=== PATIENT | female | born 1960 | race Caucasian/White ===

== ENCOUNTER → 2016-09-27 | Outpatient (CLI) | payer BC, OTHER ==
[~2016-09-27] MED LIST: CATHETER FLUSH 10 ML SYR IV PRN; CHOL100045 PO; HORMONE COMPOUND PO; HYDR-3812 PO; IOHEXOL 350 MG/ML 100 ML (OMNIPAQUE 350) VIAL IV ONE; KORE100C PO; LEVO100T7 PO; NS 100 ML (IVPB) BAG IV ONE
--- OUTSIDE RECORDS SUMMARY | 2016-09-27 13:03 | XMS REPORT | Continuity of Care Document ---
Author Author [facility] Organization [facility] Address Unknown Phone Unavailable Care Team Providers Care Finish Sander Name Role Phone NO, LOCAL PHYSICIAN PCP Unavailable Insurance Providers Payer Name Policy Number Subscriber Name Relationship [facility] [id number] Irina Morales Self / Same As Patient Problems No problem information available. Medications No medication information available. Social History Social History Problem Response Recorded Date/Time Recent Foreign Travel SEE [place] [place] 01/03/2016 1:21pm Hospital Discharge Instructions No hospital discharge instructions. Plan of Care Prescriptions See Medication Section Functional Status No functional status results. Allergies, Adverse Reactions, Alerts Unable to obtain allergies. Immunizations No immunization records. Vital Signs No known vital signs results. Results Laboratory Results Test Name Result Units Flags Reference Collection Date/Time Result Date/ Time Comments White Blood Count 5.3 10^3/uL 4.3-11.0 01/03/2016 2:18pm 01/03/2016 2: 24pm Red Blood Count 4.47 10^6/uL 4.35-5.85 01/03/2016 2:18pm 01/03/2016 2: 24pm Hemoglobin 13.5 G/DL 11.5-16.0 01/03/2016 2:18pm 01/03/2016 2:24pm Hematocrit 41 % 35-52 01/03/2016 2:18pm 01/03/2016 2:24pm Mean Corpuscular Volume 91 FL 80-99 01/03/2016 2:18pm 01/03/2016 2: 24pm Mean Corpuscular Hemoglobin 30 PG 25-34 01/03/2016 2:18pm 01/03/2016 2: 24pm Mean Corpuscular Hemoglobin Concent 33 G/DL 32-36 01/03/2016 2:1805/2016 2:24pm Red Cell Distribution Width 12.7 % 10.0-14.5 01/03/2016 2:18pm 2015 2:24pm Platelet Count 204 10^3/uL 130-400 01/03/2016 2:1801/03/2016 2:24pm Mean Platelet Volume 10.6 FL H 7.4-10.4 01/03/2016 2:1801/03/2016 2: 24pm Neutrophils (%) (Auto) 53 % 42-75 01/03/2016 2:01/03/2016 2:24pm Lymphocytes (%) (Auto) 38 % 12-44 01/03/2016 2:1801/03/2016 2:24pm Monocytes (%) (Auto) 7 % 0-12 01/03/2016 2:1801/03/2016 2:24pm Eosinophils (%) (Auto) 3 % 0-10 01/03/2016 2:1801/03/2016 2:24pm Basophils (%) (Auto) 0 % 0-10 01/03/2016 2:1801/03/2016 2:24pm Neutrophils # (Auto) 2.8 X 10^3 1.8-7.8 01/03/2016 2:01/03/2016 2: 24pm Lymphocytes # (Auto) 2.0 X 10^3 1.0-4.0 01/03/2016 2:1801/03/2016 2: 24pm Monocytes # (Auto) 0.4 X 10^3 0.0-1.0 01/03/2016 2:1801/03/2016 2: 24pm Eosinophils # (Auto) 0.2 10^3/uL 0.0-0.3 01/03/2016 2:01/03/2016 2 :24pm Basophils # (Auto) 0.0 10^3/uL 0.0-0.1 01/03/2016 2:1801/03/2016 2: 24pm Sodium Level 140 MMOL/L 135-145 01/03/2016 2:18pm 01/03/2016 3:01pm Potassium Level 3.7 MMOL/L 3.6-5.0 01/03/2016 2:18pm 01/03/2016 3:01pm Chloride Level 105 MMOL/L 98-107 01/03/2016 2:18pm 01/03/2016 3:01pm Carbon Dioxide Level 28 MMOL/L 21-32 01/03/2016 2:18pm 01/03/2016 3: 01pm Anion Gap 7 MMOL/L 5-14 01/03/2016 2:18pm 01/03/2016 3:01pm Blood Urea Nitrogen 11 MG/DL 7-18 01/03/2016 2:18pm 01/03/2016 3:01pm Creatinine 0.71 MG/DL 0.60-1.30 01/03/2016 2:18pm 01/03/2016 3:01pm BUN/Creatinine Ratio 15 01/03/2016 2:18pm 01/03/2016 3:01pm Estimat Glomerular Filtration Rate > 60 01/03/2016 2:182015 3:01pm GFR INTERPRETIVE DATA UNITS FOR ESTIMATED GFR (eGFR): mL/min/1.73 M2 REFERENCE RANGE FOR ESTIMATED GFR (eGFR) eGFR NORMAL eGFR >60 MODERATELY DECREASED eGFR 30-59 SEVERLY DECREASED eGFR 15-29 KIDNEY FAILURE <15 (OR DIALYSIS) Glucose Level 84 MG/DL 70-105 01/03/2016 2:18pm 01/03/2016 3:01pm Calcium Level 9.4 MG/DL 8.5-10.1 01/03/2016 2:1801/03/2016 3:01pm Total Bilirubin 0.5 MG/DL 0.1-1.0 01/03/2016 2:18pm 01/03/2016 3:01pm Alkaline Phosphatase 43 U/L 40-136 01/03/2016 2:18pm 01/03/2016 3:01pm Aspartate Amino Transf (AST/SGOT) 22 U/L 5-34 01/03/2016 2:18pm 2015 3:01pm Alanine Aminotransferase (ALT/SGPT) 30 U/L 0-55 01/03/2016 2:18pm 01/02 3:01pm Total Protein 6.7 G/DL 6.4-8.2 01/03/2016 2:18pm 01/03/2016 3:01pm Albumin 4.1 G/DL 3.2-4.5 01/03/2016 2:18pm 01/03/2016 3:01pm Procedures No known history of procedures. Encounters Encounter Location Arrival/Admit Date Discharge/Depart Date Attending Provider Discharged Recurring [facility] 01/03/16 1:47pm 11:59pm ROCKY VILLAVICENCIO MD
[2016-09-27 13:32] LABS: BLOOD UREA NITROGEN 14 MG/DL (7-18); BUN/CREATININE RATIO 18; CREATININE SERUM 0.76 MG/DL (0.60-1.30); GFR ESTIMATED > 60
--- NOTE | 2016-09-27 14:33 | Diagnostic Imaging Report ---
EXAMINATION: CT chest and neck performed with intravenous contrast with sagittal reconstructions performed. 100 mL of Omnipaque 350 is administered intravenously. INDICATION: Parotid nodule. Resection of skin cancer from the upper chest. FINDINGS: CT CHEST: There are skin changes anteriorly in the upper chest wall with subcutaneous air and edema and fluid probably related to recent skin resection as provided in history. Correlate with pathology results. There is no mediastinal mass. No hilar mass or lymphadenopathy. No axillary significantly enlarged lymph nodes seen. The thoracic aorta is normal in caliber. The heart size is normal. No pericardial or pleural effusion seen. The lungs demonstrate no significant consolidation or mass. No suspicious nodule seen. Sections in the upper abdomen demonstrate a hypervascular mass in the left hepatic lobe superiorly measuring 2.6 CM. The osseous structures appear grossly unremarkable. CT NECK: There is a heterogenous mass in the right thyroid lobe with associated calcification measuring 2.7 x 2.3 x 3.9 CM. A thyroid neoplasm is not excluded. The parotid space demonstrate normal gland seen bilaterally with no mass. The submandibular glands appear symmetric. The mucosal pharyngeal space is fairly symmetric. There is no significantly enlarged lymph nodes noted in the cervical chain bilaterally. Vascular enhancement in the internal jugular veins and the carotid arteries appear unremarkable. The osseous structures appear grossly unremarkable. IMPRESSION: CT NECK: A 3.9 cm solid right thyroid mass with calcification. Ultrasound evaluation and biopsy is recommended to rule out thyroid neoplasm. CT CHEST: 1. Post resection changes are seen in the skin along the anterior upper chest wall. No lung mass or lymphadenopathy in the chest. 2. Left hepatic lobe hypervascular 2.6 cm mass could be a hemangioma rather than metastasis. This can be better characterized with liver mass protocol dedicated MRI or CT scan of the abdomen. Report was faxed to office of Dr. Bryant by mee at 2:35p.m. Dictated by: Dictated on workstation # [id number]
== END ==
LOC: RAD 12:59
PROVIDERS: ATTEND Family Medicine
DX: K11.8 Other diseases of salivary glands (principal); L98.9 Disorder of the skin and subcutaneous tissue, unspecified
CPT/HCPCS: 36415; 70491; 71260; 82565; 84520

== ENCOUNTER → 2016-10-09 | Outpatient (CLI) | payer BC ==
--- OUTSIDE RECORDS SUMMARY | 2016-10-09 11:59 | XMS REPORT | Continuity of Care Document ---
Author Author [facility] Organization [facility] Address Unknown Phone Unavailable Care Team Providers Care Monument Letterer Name Role Phone NO, LOCAL PHYSICIAN PCP Unavailable Insurance Providers Payer Name Policy Number Subscriber Name [facility] [id number] Irina Morales Self / Same As Patient [...] Discharge/Depart Date Attending Provider Discharged Recurring [facility] 01/03/16 1:47pm 11:59pm ROCKY VILLAVICENCIO MD
--- NOTE | 2016-10-09 12:57 | Diagnostic Imaging Report ---
PROCEDURE: CT abdomen with and without contrast. TECHNIQUE: Multiple contiguous axial CT images of the abdomen were obtained prior to and after intravenous administration of iodinated contrast. INDICATION: Liver mass seen on CT chest from 09/27/2016. FINDINGS: In the left hepatic lobe segment II, there is a 2.5 x 2.5 x 2.5 cm hypervascular mass seen in the superior anterior aspect, which remains hypervascular on the portal venous phase and is associated with minimal washout on the delayed phase with a central area of enhancement. The unenhanced phase demonstrates minimally hypodense lesion at this location. There is another 9 mm hypervascular lesion in the lateral aspect of the left hepatic lobe, isodense to the liver parenchyma on the other phases. There is a third lesion also seen in the right hepatic lobe, axial image 40, also measuring 9 mm and isodense on the other phases. Another hypodense lesion measuring 1 cm in the medial aspect of the right hepatic lobe, image 40, is too small to accurately characterize. The gallbladder, the spleen, the adrenal glands, and the pancreas appear unremarkable. The kidneys have symmetric enhancement and contrast excretion. A 9 mm simple cyst in the left kidney is seen. No hydronephrosis. The abdominal aorta is normal in caliber. No para-aortic significantly enlarged lymph nodes. No free fluid or fluid collection is seen. Degenerative changes in the lower lumbar spine are seen. IMPRESSION: There are multiple hepatic lesions with the dominant lesion in the superior anterior aspect of the left hepatic lobe measuring 2.5 cm. 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 Liver MRI with Eovist contrast can be more specific for FNH diagnosis. Followup MRI or CT scan of the liver in three months is recommended. Dictated by: Dictated on workstation # [id number]
== END ==
LOC: RAD 11:55
PROVIDERS: ATTEND Family Medicine
DX: E07.89 Other specified disorders of thyroid (principal); R16.0 Hepatomegaly, not elsewhere classified
CPT/HCPCS: 74170

== ENCOUNTER → 2016-10-11 | Outpatient (CLI) | payer BC ==
[~2016-10-11] MED LIST changes: -CATHETER FLUSH 10 ML SYR IV PRN; -IOHEXOL 350 MG/ML 100 ML (OMNIPAQUE 350) VIAL IV ONE; -NS 100 ML (IVPB) BAG IV ONE
--- OUTSIDE RECORDS SUMMARY | 2016-10-11 12:10 | XMS REPORT | Continuity of Care Document ---
Author Author [facility] Organization [facility] Address Unknown Phone Unavailable Care Team Providers Care Soaking Room Operator Name Role Phone NO, LOCAL PHYSICIAN PCP Unavailable Insurance Providers Payer Name Policy Number Subscriber Name Relationship [facility] [id number] Irina Morales Self / Same As Patient [...] Discharge/Depart Date Attending Provider Discharged Recurring [facility] 01/03/16 1:47pm 11:59pm ROCKY VILLAVICENCIO MD
== END ==
LOC: LAB 12:07
PROVIDERS: ATTEND Family Medicine
DX: E04.1 Nontoxic single thyroid nodule (principal)
CPT/HCPCS: 36415; 84436; 84443; 84480

== ENCOUNTER → 2016-10-24 | Outpatient (CLI) | payer BC, OTHER ==
[~2016-10-24] VITALS: Ht 165.1 cm; Wt 63.5 kg
[~2016-10-24] MED LIST changes: +GADOXETATE 2.5 MMOL/10 ML (EOVIST) IV ONE; +LIDOCAINE 1% INJ 20 ML (XYLOCAINE) VIAL INJ ONE; +LIDOCAINE 1% INJ 20 ML (XYLOCAINE) VIAL ONE
--- OUTSIDE RECORDS SUMMARY | 2016-10-24 12:11 | XMS REPORT | Continuity of Care Document ---
Author Author [facility] Organization [facility] Address Unknown Phone Unavailable Care Team Providers Care Emergency Room Doctor Name Role Phone NO, LOCAL PHYSICIAN PCP Unavailable Insurance Providers Payer Name Policy Number Subscriber Name Relationship [facility] [id number] Irina Morales Self / Same As Patient [...] Discharge/Depart Date Attending Provider Discharged Recurring [facility] 01/03/16 1:47pm 11:59pm ROCKY VILLAVICENCIO MD
[2016-10-24 12:48] LABS: BLOOD UREA NITROGEN 14 MG/DL (7-18); BUN/CREATININE RATIO 19; CREATININE SERUM 0.74 MG/DL (0.60-1.30); GFR ESTIMATED > 60
[2016-10-24 13:32] VITALS: BP 134/84
[2016-10-24 13:58] VITALS: BP 128/80
--- NOTE | 2016-10-24 16:27 | Diagnostic Imaging Report ---
EXAMINATION: US-guided core biopsy-thyroid. INDICATION: Right thyroid nodule. Current history and physical and other medical records are reviewed prior to the procedure. CONSENT: Informed consent was obtained from the patient. The risks, benefits, potential complications and alternatives were reviewed and all questions answered to the patient's satisfaction. The patient's vital signs, cardiac rhythm, and pulse oximetry with observed throughout the procedure by qualified nursing personnel. Sedation/medications: none. FINDINGS: Right thyroid mass. PROCEDURE: After maximal sterile barrier technique preparation and draping, 1% lidocaine was utilized for local anesthesia. With the patient in supine position, and via anterior approach, a 19-gauge guide needle is introduced into the right-sided mass under live ultrasound guidance. After confirming adequate positioning with saved ultrasound images, multiple 20 gauge core biopsy specimens were obtained. The patient tolerated the procedure well with no immediate complications. IMPRESSION: Successful US-guided core biopsy of right thyroid mass. Dictated by: Dictated on workstation # [id number]
--- NOTE | 2016-10-24 18:26 | Diagnostic Imaging Report ---
PROCEDURE: MR imaging abdomen with and without contrast. TECHNIQUE: Multiplanar, multisequence MR imaging of the abdomen was performed with and without contrast. INDICATION: Liver masses. 6 mL of Eovist is administered intravenously. FINDINGS: There is an isointense T1 and very minimally hyperintense T2 mass measuring 2.8 x 2.3 cm superiorly in the left hepatic lobe with associated postcontrast enhancement. There is no significant washout on delayed phase imaging. The mass is lobulated and has defined margins. There is central scar suggested. There is delayed phase enhancement in the 20 minute hepatocellular phase contrast with Eovist which is associated with high specificity for focal nodular hyperplasia diagnosis. Other lesions close to 1 cm are occult by MRI except for an anterior right hepatic lobe segment 5 lesion without enhancement and with T2 hyperintense signal suggestive of a hepatic cyst. The gallbladder is contracted with no stones or evidence of cholecystitis. The spleen is normal in size. The adrenal glands and the pancreas appear unremarkable. The kidneys have symmetric enhancement with no solid mass. The abdominal aorta is normal in caliber. No para-aortic significantly enlarged lymph nodes seen. 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 Followup MRI or CT exams to ensure stability is recommended initially at 4 month interval. Dictated by: Dictated on workstation # [id number]
--- NOTE | 2016-10-24 19:35 | Diagnostic Imaging Report ---
PROCEDURE: US Thyroid. TECHNIQUE: Multiple real-time grayscale images were obtained of the thyroid in various projections. INDICATION: Thyroid mass seen on CT. FINDINGS: The right thyroid lobe is 5.3 x 2.5 x 2.3 cm. The left lobe is 2.9 x 0.8 x 1.8 cm. There is a 3.9 x 2.3 x 2.3 cm mass seen in the right thyroid lobe. In the upper aspect of the left thyroid lobe, there is a 2 mm hypoechoic lesion probably a tiny colloid cyst. No other lesions identified. IMPRESSION: 3.9 cm solid mass in the right thyroid lobe. Dictated by: Dictated on workstation # [id number]
== END ==
LOC: RAD 12:08
PROVIDERS: ATTEND Surgery
DX: E04.1 Nontoxic single thyroid nodule (principal); R16.0 Hepatomegaly, not elsewhere classified
CPT/HCPCS: 36415; 74183; 76536; 76942; 82565; 84520; 88305

== ENCOUNTER 2016-10-31 11:01 | Outpatient (CLI) | payer BC ==
[~2016-10-31] VITALS: Ht 165.1 cm; Wt 60.6 kg
--- OUTSIDE RECORDS SUMMARY | 2016-10-31 11:05 | XMS REPORT | Continuity of Care Document ---
Author Author [facility] Organization [facility] Address Unknown Phone Unavailable Care Team Providers Care Civil Engineering Design Draftsperson Name Role Phone NO, LOCAL PHYSICIAN PCP Unavailable Insurance Providers Payer Name Policy Number Subscriber Name Relationship [facility] [id number] Irina Morales Self / Same As Patient [...] Discharge/Depart Date Attending Provider Discharged Recurring [facility] 01/03/16 1:47pm 11:59pm ROCKY VILLAVICENCIO MD
[2016-10-31] MEDS ORDERED: KORE100C PO (11:11)
[2016-10-31] MEDS ORDERED: CHOL100045 PO (11:11)
[2016-10-31] MEDS ORDERED: HORMONE COMPOUND PO (11:11)
[2016-10-31 11:14] VITALS: BP 123/76
[2016-10-31 11:41] LABS: BASOPHILS % (AUTO) 0 % (0-10); EOSINOPHILS # (AUTO) 0.1 10^3/uL (0.0-0.3); EOSINOPHILS % (AUTO) 3 % (0-10); LYMPHOCYTES # (AUTO) 2.3 X 10^3 (1.0-4.0); LYMPHOCYTES % (AUTO) 43 % (12-44); MEAN CORPUSCULAR HEMOGLOBIN 31 PG (25-34); MEAN CORPUSCULAR HGB CONC 34 G/DL (32-36); MEAN CORPUSCULAR VOLUME 89 FL (80-99); MEAN PLATELET VOLUME 10.8 FL (7.4-10.4); MONOCYTES # (AUTO) 0.5 X 10^3 (0.0-1.0); MONOCYTES % (AUTO) 9 % (0-12); NEUTROPHILS # (AUTO) 2.5 X 10^3 (1.8-7.8); NEUTROPHILS % (AUTO) 46 % (42-75); PLATELET COUNT 193 10^3/uL (130-400); RED BLOOD COUNT 4.46 10^6/uL (4.35-5.85); RED CELL DISTRIBUTION WIDTH 12.3 % (10.0-14.5); WHITE BLOOD COUNT 5.5 10^3/uL (4.3-11.0)
[2016-10-31 12:07] LABS: ANION GAP 10 MMOL/L (5-14); BLOOD UREA NITROGEN 15 MG/DL (7-18); BUN/CREATININE RATIO 22; CALCIUM 9.4 MG/DL (8.5-10.1); CARBON DIOXIDE 24 MMOL/L (21-32); CHLORIDE 108 MMOL/L (98-107); CREATININE SERUM 0.69 MG/DL (0.60-1.30); GFR ESTIMATED > 60; GLUCOSE 76 MG/DL (70-105); POTASSIUM 3.8 MMOL/L (3.6-5.0); SODIUM 142 MMOL/L (135-145)
== END 2016-10-31 11:30 | disposition home or self-care (01) ==
LOC: PREOP 11:01
PROVIDERS: ATTEND Surgery
DX: Z01.812 Encounter for preprocedural laboratory examination (principal); Z11.2 Encounter for screening for other bacterial diseases; E04.2 Nontoxic multinodular goiter; C44.519 Basal cell carcinoma of skin of other part of trunk
CPT/HCPCS: 36415; 80048; 85025; 87081

== ENCOUNTER 2016-11-02 08:54 | Day surgery (SDC) | payer BC, OTHER ==
[~2016-11-02] VITALS: Ht 165.1 cm; Wt 60.6 kg
[~2016-11-02 08:54] MED LIST changes: -GADOXETATE 2.5 MMOL/10 ML (EOVIST) IV ONE; -HYDR-3812 PO; -LEVO100T7 PO; -LIDOCAINE 1% INJ 20 ML (XYLOCAINE) VIAL INJ ONE; -LIDOCAINE 1% INJ 20 ML (XYLOCAINE) VIAL ONE
--- OUTSIDE RECORDS SUMMARY | 2016-11-02 08:57 | XMS REPORT | Continuity of Care Document ---
Author Author [facility] Organization [facility] Address Unknown Phone Unavailable Care Team Providers Care Oceanography Teacher Name Role Phone GAIL FELDMAN MD PCP Insurance Providers Payer Name Policy Number Subscriber Name Relationship [facility] [id number] Irina Santana 18 Self / Same As Patient Advance Directives Directive Response Recorded Date/Time Advance Directives No 10/31/16 11:12am Health Care Power of Host Hostess No 10/31/16 11:12am Organ Donor Yes 10/31/16 11:12am Resuscitation Status Full Code 10/31/16 11:12am Problems No problem information available. Medications Current Home Medications Medication Dose Units Route Directions Days/Qty Instructions Start Date Cholecalciferol (Vitamin D3) 1,000 Unit 2,000 Unit Oral Daily Polish Ginseng Root Extract 100 Mg 200 Mg Oral Daily 10/31/16 [Hormone Compound] 1 Tab Oral Daily 10/31/16 Social History Social History Problem Response Recorded Date/Time Alcohol Use Rarely Uses 10/31/2016 11:12am Recreational Drug Use No 10/31/2016 11:12am Recent Foreign Travel No 10/31/2016 11:11am Recent Infectious Disease Exposure No 10/31/2016 11:11am Smoking Status Light Tobacco Smoker 10/31/2016 11:12am Recent Hopitalizations No 10/31/2016 11:12am Query Response Start Date Stop Date Smoking Status Light Tobacco Smoker Hospital Discharge Instructions No hospital discharge instructions. Plan of Care Discharge Date 10/31/16 11:30am Prescriptions See Medication Section Functional Status No functional status results. Allergies, Adverse Reactions, Alerts No known allergies. Immunizations No immunization records. Vital Signs Acute Vital Signs Vital Response Date/Time Temperature (Fahrenheit) 98.8 degrees F (97.6 - 99.5) 10/24/2016 1:58pm Temperature (Calculated Celsius) 36.51699 degrees C (36.4 - 37.5) 10/24/2016 1:32pm Temperature Source Temporal 10/24/2016 1:58pm Pulse Rate (adult) 82 bpm (60 - 90) 10/31/2016 11:14am Respiratory Rate 18 bpm (12 - 24) 10/24/2016 1:58pm O2 Sat by Pulse Oximetry 97 % (88 - 100) 10/31/2016 11:14am Blood Pressure 123/76 mm Hg 10/31/2016 11:14am Blood Pressure Mean 92 mm Hg 10/31/2016 11:14am Pain Numeric Pain Scale 0-No Pain 10/31/2016 11:14am Height (Feet) 5 feet 10/31/2016 11:09am Height (Inches) 5.00 inches 10/31/2016 11:09am Height (Calculated Centimeters) 165.412232 cm 10/31/2016 11:09am Weight (Pounds) 133 pounds 10/31/2016 11:09am Weight (Ounces) 8.0 oz 10/31/2016 11:09am Weight (Calculated Grams) 37478.58 gm 10/31/2016 11:09am Weight (Calculated Kilograms) 60.320610 kilograms 10/31/2016 11:09am Calculated BMI 22.2 10/31/2016 11:09am Results Pending Laboratory Results Test Name Collection Date/Time Procedures Procedure Status Date Provider(s) BIOPSY OF THYROID Completed 10/24/16 PAVEL DAY MD Encounters Encounter Location Arrival/Admit Date Discharge/Depart Date Attending Provider Departed Clinic [facility] 10/31/16 11:01am 10/31/16 11: 30am JOSE MANUEL HARTMANN MD Registered Clinic [facility] 10/24/16 12:08pm JOSE MANUEL HARTMANN MD Registered Clinic [facility] 10/11/16 12:07pm GAIL FELDMAN MD Registered Clinic [facility] 10/09/16 11:55am GAIL FELDMAN MD
--- OUTSIDE RECORDS SUMMARY | 2016-11-02 08:58 | XMS REPORT | Continuity of Care Document ---
Author Author [facility] Organization [facility] Address Unknown Phone Unavailable Care Team Providers Care Register Of Wills Name Role Phone GAIL FELDMAN MD PCP Insurance Providers Payer Name Policy Number Subscriber Name Relationship [facility] [id number] Irina Santana 18 Self / Same As Patient Advance Directives Directive Response Recorded Date/Time Advance Directives No 10/31/16 11:12am Health Care Power of Aircraft Armament Mechanic No 10/31/16 11:12am Organ Donor Yes 10/31/16 11:12am Resuscitation Status Full Code 10/31/16 11:12am Problems No problem information available. Medications Current Home Medications Medication Dose Units Route Directions Days/Qty Instructions Start Date Cholecalciferol (Vitamin D3) 1,000 Unit 2,000 Unit Oral Daily Bulgarian Ginseng Root Extract 100 Mg 200 Mg [...] - 99.5) 10/24/2016 1:58pm Temperature (Calculated Celsius) 36.11944 degrees C (36.4 - 37.5) 10/24/2016 1:32pm [...] 5.00 inches 10/31/2016 11:09am Height (Calculated Centimeters) 165.212141 cm 10/31/2016 11:09am Weight (Pounds) 133 pounds 10/31/2016 11:09am Weight (Ounces) 8.0 oz 10/31/2016 11:09am Weight (Calculated Grams) 43663.58 gm 10/31/2016 11:09am Weight (Calculated Kilograms) 60.765282 kilograms 10/31/2016 11:09am Calculated BMI 22.2 10/31/2016 11:09am Results Pending Laboratory Results Test Name Collection Date/Time Procedures Procedure Status Date Provider(s) BIOPSY OF THYROID Completed 10/24/16 PAVEL DAY MD Encounters Encounter Location Arrival/Admit Date Discharge/Depart Date Attending Provider Departed Clinic [facility] 10/31/16 11:01am 10/31/16 11: 30am JOSE MANUEL HARTMANN MD Registered Clinic [facility] 10/24/16 12:08pm JOSE MANUEL HARTMANN MD Registered Clinic [facility] 10/11/16 12:07pm GAIL FELDMAN MD Registered Clinic [facility] 10/09/16 11:55am GAIL FELDMAN MD
[2016-11-02] MEDS ORDERED: ceFAZolin 1,000 MG (ANCEF) VIAL ONE (09:32)
[2016-11-02] MEDS ORDERED: NS (IVPB) 50 ML ONE (09:32)
[2016-11-02 09:55] VITALS: BP 115/77
[2016-11-02] MEDS: LACTATED RINGERS 1,000 ML IV PRN ×2 (09:57→12:35)
--- NOTE | 2016-11-02 11:05 | Progress Note-Pre Operative ---
Pre-Operative Progress Note H&P Reviewed The H&P was reviewed, patient examined and no changes noted. Date H&P Reviewed: Nov 02, 2016 Time H&P Reviewed: 11:05 Pre-Operative Diagnosis: 1.Thyroid nodules. 2. BCC Left chest wall JOSE MANUEL HARTMANN MD Nov 02, 2016 11:05 am
[2016-11-02] MEDS ORDERED: THROMBIN SPRAY KIT 5,000 UNIT VIAL ONE (11:12)
[2016-11-02] MEDS ORDERED: BUP/EPI 0.25% 1:200,000 (MARCAINE) 30 ML VIAL ONE (11:12)
[2016-11-02] MEDS ORDERED: ROCURONIUM 50 MG/5 ML (ZEMURON) VIAL IV ONE (11:29)
[2016-11-02] MEDS ORDERED: DEXAMETHASONE PF 10 MG/ML (DECADRON) VIAL ONE (11:29)
[2016-11-02] MEDS ORDERED: LIDOCAINE PF 2% 10 ML (XYLOCAINE) AMP ONE (11:29)
[2016-11-02] MEDS ORDERED: ONDANSETRON 4 MG/2 ML (SDV) Z0FRAN ONE ×2 (11:29→15:40)
[2016-11-02] MEDS ORDERED: proPOfol 200 MG/20 ML (DIPRIVAN) VIAL IV ONE (11:29)
[2016-11-02] MEDS ORDERED: SEVOFLURANE (ULTANE) 15 ML INHAL SOLN ONE ×3 (11:29→14:18)
[2016-11-02] MEDS ORDERED: LACTATED RINGERS 1,000 ML IV ONE ×2 (11:29→12:38)
[2016-11-02] MEDS ORDERED: MIDAZOLAM 2 MG/2 ML (VERSED) VIAL ONE (11:30)
[2016-11-02] MEDS ORDERED: fentaNYL INJECTION 250 MCG/5 ML AMP ONE (11:30)
[2016-11-02] MEDS ORDERED: SUCCINYLCHOLINE INJ 100 MG/5 ML SYR ONE (11:30)
[2016-11-02] MEDS ORDERED: CATHETER FLUSH 10 ML SYR IV PRN (12:00)
[2016-11-02] MEDS ORDERED: ceFAZolin 1 GM/NS 50 ML IVPB IV ONE ×2 (12:00)
[2016-11-02] MEDS ORDERED: ONDANSETRON 4 MG/2 ML (SDV) Z0FRAN IVP PRN (14:00)
[2016-11-02] MEDS ORDERED: fentaNYL INJECTION 100 MCG/2 ML AMP IVP PRN (14:00)
--- NOTE | 2016-11-02 14:00 | Progress Note-Post Operative ---
Post-Operative Progess Note Pre-Operative Diagnosis 1.Thyroid nodules. 2. BCC Left chest wall Post-Operative Diagnosis Same Post-Op Procedure Note Date of Procedure: Nov 02, 2016 Name of Procedure: 1.ttotal thyroidectomy 2. Intraoperative no monitoring 3. Excision of basal cell carcinoma from left chest wall Anesthesia Type Gen. Estimated blood loss (mL): minimal Specimen(s) collected both lobes of thyroid. Basal cell carcinoma from left chest wall JOSE MANUEL HARTMANN MD Nov 02, 2016 2:00 pm
[2016-11-02] MEDS ORDERED: HYDR-3812 PO (14:02)
[2016-11-02] MEDS ORDERED: LEVO100T7 PO (14:03)
--- NOTE | 2016-11-02 14:04 | Discharge Inst-Simple/Standard ---
Discharge Inst-Standard Discharge Medications New, Converted or Re-Newed RX: RX on Chart Patient Instructions/Follow Up Plan of Care/Instructions/FU: dressings off in a.m. Follow-up in 3 weeks Activity as Tolerated: Yes Discharge Diet: No Restrictions JOSE MANUEL HARTMANN MD Nov 02, 2016 2:04 pm
[2016-11-02] MEDS ORDERED: morphine INJ 10 MG/ML 1ML (SYR OR VIAL) ONE (14:27)
[2016-11-02] MEDS ORDERED: ONDANSETRON 4 MG/2 ML (SDV) Z0FRAN IV PRN (15:15)
[2016-11-02] MEDS: morphine INJ 10 MG/ML 1ML (SYR OR VIAL) IV PRN ×2 (15:15→15:20)
[2016-11-02 16:00] VITALS: BP_SYST 115; BP_SYST 128; BP_DIAS 70; BP_DIAS 77
[2016-11-02 17:00] VITALS: BP 115/77
[2016-11-02] MEDS: LACTATED RINGERS 1,000 ML IV SCH (17:19)
[2016-11-02 20:00] VITALS: BP 124/77
--- NOTE | 2016-11-02 20:24 | OPERATIVE REPORT ---
PROCEDURE PHYSICIAN: JOSE MANUEL HARTMANN DATE OF PROCEDURE: 11/02/2016 PREOPERATIVE DIAGNOSES: 1. Bilateral thyroid nodules. 2. Basal cell carcinoma of the left chest wall. POSTOPERATIVE DIAGNOSIS: 1. Bilateral thyroid nodules. 2. Basal cell carcinoma of the left chest wall. OPERATIONS: 1. Total thyroidectomy. 2. Intraoperative nerve monitoring. 3. Excision of basal cell carcinoma of left chest wall. SURGEON: Dr. Hartmann ANESTHESIA: General anesthesia. BLOOD LOSS: Minimal. FLUIDS: 1500 mL of crystalloids. TYPE OF WOUND: Type I (clean wound). INDICATION FOR THE PROCEDURE: This lady was found to have a 3.9 cm right thyroid nodule and a smaller left thyroid nodule. Despite negative needle biopsy, due to the large nature of the nodule, it is felt reasonable to proceed with thyroidectomy, to establish a definitive diagnosis. During the evaluation, an area of basal cell carcinoma involving the left chest wall with positive margins was discovered. Therefore, reexcision with negative margins was also offered. Informed consent was obtained after reviewing the operative details and complications of postoperative hematoma, transient hoarseness of voice and hypocalcemia. DESCRIPTION OF PROCEDURE: She was placed supine on the operating table and general anesthesia induced using an endotracheal tube. A gram of Ancef was administered intravenously as prophylaxis against infection. Sequential compression devices were placed around her legs, to minimize the risk of venous thrombosis. TOTAL THYROIDECTOMY/NEUROMONITORING: Her neck and upper chest were prepared and draped in the usual sterile manner. Preemptive analgesia was established using 0.25% Marcaine with epinephrine. A 4 cm transverse incision was made along the skin crease of the neck and platysma incised transversely. Flaps were raised superiorly to the level of the thyroid cartilage and inferiorly to the sternal notch. Cervical fascia was incised vertically and the strap muscles were retracted laterally. I began the dissection on the right side. The lobe with a large nodule within it came into view and was retracted medially. The recurrent laryngeal nerve was identified in its conventional position and protected by constant visual inspection and intermittent nerve stimulation technique. Both about thyroid gland identified and preserved, along with their blood supply. The isthmus was then divided and the right lobe sent for frozen section examination. There was no evidence of papillary carcinoma. On the left side a smaller lobe with a subcentimeter nodule is encountered. It excised in a standard fashion. I was able to identify it superior parathyroid gland and preserved its blood supply. We had the anesthesiologist conduct Valsalva maneuver, looking for bleeding. There was not any. Gelfoam, soaked in thrombin solution was placed along the tracheoesophageal groove to optimize hemostasis. The neck was flexed in preparation for closure. Cervical fascia was approximated using 3-0 Vicryl and platysma using the same material. The skin was closed using 4-0 Vicryl, in a subcuticular fashion. EXCISION OF BASAL CELL CARCINOMA OF LEFT CHEST WALL: Once the thyroidectomy site was covered with sterile dressing, the lesion over the left chest wall was excised and frozen section confirmed negative margins. The defect was approximated using 5-0 nylon sutures. She tolerated the procedures well, was extubated in the operating room and taken to the recovery room in a stable condition. [place], sponges, and instruments were correct at the end of the operation. Job ID: [id number] Dictated Date: 11/02/2016 13:55:19 Software Publisher Date: 11/02/2016 20:13:30 / jeni
[2016-11-02] MEDS: CALCIUM CARBONATE 600 MG (CALCARB) TAB PO SCH (20:58)
[2016-11-02] MEDS: HYDROcodone/APAP 5 MG/325 MG (LORTAB) TAB PO PRN ×2 (20:58→22:26)
[2016-11-03] VITALS: BP 100/59
[2016-11-03] MEDS: LACTATED RINGERS 1,000 ML IV SCH ×2 (03:12)
[2016-11-03] MEDS: HYDROcodone/APAP 5 MG/325 MG (LORTAB) TAB PO PRN ×2 (03:12→08:20)
[2016-11-03 04:00] VITALS: BP 102/58
[2016-11-03 05:41] LABS: ANION GAP 9 MMOL/L (5-14); BLOOD UREA NITROGEN 10 MG/DL (7-18); BUN/CREATININE RATIO 16; CALCIUM 9.2 MG/DL (8.5-10.1); CARBON DIOXIDE 23 MMOL/L (21-32); CHLORIDE 107 MMOL/L (98-107); CREATININE SERUM 0.64 MG/DL (0.60-1.30); GFR ESTIMATED > 60; GLUCOSE 88 MG/DL (70-105); POTASSIUM 4.2 MMOL/L (3.6-5.0); SODIUM 139 MMOL/L (135-145)
[2016-11-03] MEDS ORDERED: LEVOTHYROXINE 100 MCG (LEVOTHROID) TAB PO NR (06:00)
[2016-11-03 08:00] VITALS: BP 123/76
--- NOTE | 2016-11-03 08:39 | Anesthesia-General Post-Op ---
General Patient Condition Mental Status/LOC: Same as Preop Cardiovascular: Satisfactory Nausea/Vomiting: Absent Respiratory: Satisfactory Pain: Controlled Complications: Absent Post Op Complications Complications None Follow Up Care/Instructions Patient Instructions None needed. Anesthesia/Patient Condition Patient Condition Patient is doing well, no complaints, stable vital signs, no apparent adverse anesthesia problems. No complications reported per nursing. SERAFIN HOANG CRNA Nov 03, 2016 08:39
[2016-11-03] MEDS: CALCIUM CARBONATE 600 MG (CALCARB) TAB PO SCH (10:13)
[2016-11-03] MEDS ORDERED: FLU TRIvalent (5 YOA+) 2016-17 (AFLURIA) 0.5 ML IM ONE (11:00)
--- NOTE | 2016-11-05 11:43 | Physician Query-Final Dx ---
CALE BECERRA 11/05/16 1142: Clinic Account Progress/Dx Physician Query: Please give the size of the Basal cell Carcinoma lesion removed from the chest wall thank you Date of Service Nov 02, 2016 at 08:54 JOSE MANUEL HARTMANN MD 11/05/16 1208: Clinic Account Progress/Dx DIAGNOSIS: Diagnosis 7 cm x 4 cm CALE BECERRA Nov 05, 2016 11:42 JOSE MANUEL HARTMANN MD Nov 05, 2016 12:08
== END 2016-11-03 11:30 | disposition home or self-care (01) ==
LOC: SDC 08:54 → 4TH 16:00 → SDC 11-03 11:30
PROVIDERS: ATTEND Surgery
DX: E04.2 Nontoxic multinodular goiter (principal); C44.519 Basal cell carcinoma of skin of other part of trunk
CPT/HCPCS: 36415; 80048; 88305; 88307; 88331; 88332

== ENCOUNTER → 2016-12-14 | Outpatient (CLI) | payer BC ==
[~2016-12-14] MED LIST changes: +HYDR-3812 PO; +LEVO100T7 PO
[2016-12-14 12:16] LABS: THYROID STIMULATING HORMONE 7.87 UIU/ML (0.35-4.94)
== END ==
LOC: LAB 11:20
PROVIDERS: ATTEND Surgery
DX: E89.0 Postprocedural hypothyroidism (principal)
CPT/HCPCS: 36415; 84439; 84443

== ENCOUNTER → 2017-01-11 | Outpatient (CLI) | payer BC ==
[2017-01-11 12:42] LABS: THYROID STIMULATING HORMONE 3.33 UIU/ML (0.35-4.94)
== END ==
LOC: LAB 11:41
PROVIDERS: ATTEND Surgery
DX: E05.90 Thyrotoxicosis, unspecified without thyrotoxic crisis or storm (principal); E89.0 Postprocedural hypothyroidism
CPT/HCPCS: 36415; 84439; 84443; 84480

== ENCOUNTER → 2017-11-01 | Outpatient (CLI) | payer BC ==
[~2017-11-01] MED LIST changes: +ACHD5005 PO; -HYDR-3812 PO
--- NOTE | 2017-11-01 15:25 | Diagnostic Imaging Report ---
PROCEDURE: CT abdomen without contrast. TECHNIQUE: Multiple contiguous axial images were obtained through the abdomen without the use of intravenous contrast. INDICATION: Followup liver mass. COMPARISON: CT abdomen with and without contrast from 10/09/16. FINDINGS: Assessment of the liver mass is limited without IV contrast. Allowing for this, it is grossly stable in size measuring approximately 2.0 x 2.4 cm (differences in size is likely due to the lack of IV contrast on today's examination). No definitive new liver lesions by noncontrast imaging. Liver is normal in size. Unenhanced spleen, pancreas and adrenals are normal. No renal calculi or suspicious solid mass lesion. Visualized bowel is normal. No abdominal lymphadenopathy. 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 IMPRESSION: 1. Assessment of the liver mass is mildly limited without IV contrast. Allowing for this, the dominant mass at the level of the superior left hepatic lobe is grossly stable in size. Dictated by: Dictated on workstation # [id number]
== END ==
LOC: RAD 12:10
PROVIDERS: ATTEND Family Medicine
DX: R16.0 Hepatomegaly, not elsewhere classified (principal)
CPT/HCPCS: 74150

== ENCOUNTER → 2017-11-15 | Outpatient (CLI) | payer BC | LOC: LAB 11:23 | PROVIDERS: ATTEND Family Medicine | DX: E03.8 Other specified hypothyroidism (principal) | CPT/HCPCS: 36415; 84443 ==